=== PATIENT | female | born 1975 ===

== ENCOUNTER → 2024-12-30 | Day surgery (SDC) | payer OTHER ==
[~2024-12-30] MED LIST: CANDESARTAN CILE8 MG; CEFAZOLIN SODIUM 1,000 MG VIAL ONE; CHLORHEXIDINE GLUCONATE 120 ML BOTTLE TOP ONE; METHYLERGONOVINE MALEATE 0.2 MG/ML AMPUL ONE; NAPR500T14 PO; ONDANSETRON HCL 2 MG/ML VIAL ONE; POVIDONE-IODINE 118 ML BOTT TOP ONE
== END | disposition home or self-care (01) ==
LOC: ADM 12-27 10:30 → CIR.AMB 06:00
PROVIDERS: ATTEND Obstetrics & Gynecology
DX: N84.0 Polyp of corpus uteri (principal); N95.0 Postmenopausal bleeding